=== PATIENT | male | born 1995 | race Caucasian/White ===

== ENCOUNTER 2020-01-02 14:36 | Emergency (ER) | payer SELFPAY ==
[2020-01-02 14:45] VITALS: BP 147/79; PULSE 91; RESP 16; TEMP 36.9; O2SAT 98
--- NOTE | 2020-01-02 15:42 | ED.MALEGU ---
HPI - Male Genitourinary General Chief complaint: Urogenital-Male Stated complaint: wants to be tested for STDs Source: patient Mode of arrival: ambulatory Limitations: no limitations History of Present Illness HPI Narrative: Patient presents with some history of unprotected sex with a individual that he does not know personally, and I was concerned and wanted to be tested, currently not having any symptoms there is no penile discharge there is no penile rash or ulcerations, no fever or chills no dysuria. Patient does have a rash on his arms unrelated to the STD concerns. Onset (ago): week(s) Related Data Home Medications Medication Instructions Recorded Confirmed sertraline [Zoloft] 100 mg PO DAILY 01/02/20 01/02/20 Allergies Allergy/AdvReac Type Severity Reaction Status Date / Time No Known Allergies Allergy Verified 01/02/20 14:52 Review of Systems Review of Systems: All systems reviewed & are unremarkable except as noted in HPI and below PMFSH Past Medical History Medical History Patient denies medical problems Exam Const: General: cooperative, healthy appearing, comfortable, no acute distress, well developed, alert, awake and Physically active HENMT: Head: normal to inspection General nose exam: Normal external nose present Face and sinus: normal facial exam Mouth: Yes Normal oral and palatal mucosa present Eyes: General: appearance normal, both eyes and all related structures Eyelids: eyelids normal Conjunctivae: conjunctivae normal Sclera: sclerae normal EOM: EOMs intact bilaterally Neck: Neck: normal visual inspection, full ROM, no lymphadenopathy and no meningeal signs Chest: Chest palpation & inspection: normal inspection of the chest Resp: Effort & Inspection: normal respiratory effort Auscultation: clear to auscultation bilaterally Cardio: Palpation: normal PMI Rate: regular rate Rhythm: regular rhythm Back/Spine/Pelvis: Back: no CVA tenderness Skin: Rashes: rashes noted ( eczematous rash on his arm) Wounds: no wounds Neuro: General: oriented to person and oriented to place Psych: Appearance: grossly normal Course Course Emergency Course: patient's concerns addressed and had orders performed for STD check, further rash advised patient that we will be sending a Medrol Dosepak. Patient to receive ceftriaxone and azithromycin while here in the emergency department. Vital Signs Vital signs: Vital Signs Temperature 36.9 C 01/02/20 14:45 Pulse Rate 91 01/02/20 14:45 Respiratory Rate 16 01/02/20 14:45 Blood Pressure 147/79 H 01/02/20 14:45 Pulse Oximetry 98 01/02/20 14:45 Temperature 36.9 C 01/02/20 14:45 Pulse Rate 91 01/02/20 14:45 Respiratory Rate 16 01/02/20 14:45 Blood Pressure 147/79 H 01/02/20 14:45 Pulse Oximetry 98 01/02/20 14:45 MDM - Male Genitourinary Lab Data Labs: Lab Results 01/02/20 01/02/20 01/02/20 Range/Units 15:06 15:13 15:13 CSF HIV-1 p24 Ag Scrn Pending RPR Pending RPR Titer Add Testing Pending C.trachomatis RNA (TMA) Pending Hepatitis A IgM Ab Hep Bs Antigen Hep B Core IgM Ab Hepatitis C Antibody Hep C Ab Signal/Cutoff Hep C Ab Comment HIV 1&2 Antibody Rapid Pending N.gonorrhoeae RNA (TMA) Pending 01/02/20 Range/Units 15:15 CSF HIV-1 p24 Ag Scrn RPR RPR Titer Add Testing C.trachomatis RNA (TMA) Hepatitis A IgM Ab Pending Hep Bs Antigen Pending Hep B Core IgM Ab Pending Hepatitis C Antibody Pending Hep C Ab Signal/Cutoff Pending Hep C Ab Comment Pending HIV 1&2 Antibody Rapid N.gonorrhoeae RNA (TMA) Critical Care Time Critical Care Time Critical Care Time: No Discharge Plan Discharge Clinical Impression: Exposure to STD Contact dermatitis Qualifiers: Contact dermatitis type: unspecified Contact dermatitis trigger: other tr
[2020-01-02] MEDS: AZITHROMYCIN 250 MG TABLET 1000 MG PO (15:51)
[2020-01-02] MEDS: cefTRIAXone 250 MG VIAL IM (15:53)
[2020-01-02 16:01] VITALS: RESP 17
[2020-01-02 16:20] LABS: HIV 1 P24 AG Negative (Negative); HIV 1/2 AB Negative (Negative)
[2020-01-04 17:52] LABS: RPR Screen Non-Reactive (Non-Reactive)
[2020-01-05 03:49] LABS: Hepatitis A Antibody IgM Nonreactive; Hepatitis B Core Antibody Nonreactive (Nonreactive); Hepatitis B Surface Antigen Nonreactive (Nonreactive); Hepatitis C Signal to Cutoff 0.02 ratio (<1.00); Hepatitis C Virus Antibody Nonreactive (Nonreactive)
== END 2020-01-02 16:00 | disposition home or self-care (01) ==
PROVIDERS: Emergency Provider Emergency Medicine
DX: Z20.2 Contact with and (suspected) exposure to infections with a predominantly sexual mode of transmission (principal); L25.8 Unspecified contact dermatitis due to other agents
CPT/HCPCS: 36415; 80074; 86592; 86703; 87491; 87591; 96372; 99283; A9270; J0696